=== PATIENT | female | born 2000 | race Two or more races ===

== ENCOUNTER 2025-04-30 08:56 | Day surgery (SDC) | payer OTHER, SELFPAY ==
--- OUTSIDE RECORDS SUMMARY | 2025-03-14 06:00 | XMS_ITS ---
Author Organization [employer] Address [address] [place] [address] Care Team Providers Care Straightedge Machine Operator Helper Name Role Phone LUISITO JAMESON Unavailable [phone] REASON FOR VISIT Annual HOME ECONOMIST Physical Encounters Encounter Location Date Provider Diagnosis [employer] [address] [facility] [address] [place] [address] 03/14/2025 LUISITO JAMESON Encounter for gynecological examination (general) (routine) without abnormal findings Z01.419 and Encounter for screening for infections with a predominantly sexual mode of transmission Z11.3 Assessments Encounter Date Diagnosis (ICD Code) Assessment Notes Treatment Notes Treatment Clinical Notes Section Notes 03/14/2025 Encounter for gynecological examination (general) (routine) without abnormal findings (ICD-10 - Z01.419) Discussed cervical cancer screening with cytology every 3 years as per ASCCP guidelines. Advised continued annual pelvic exams. Patient encouraged to increase her level of exercise. SBE technique encouraged/tau ght. Safe sexual practices and STI prevention discussed. 03/14/2025 Encounter for screening for infections with a predominantly sexual mode of transmission (ICD-10 - Z11.3) Plan Of Treatment Treatment Notes Assessment Notes Encounter for gynecological examination (general) (routine) without abnormal findings Discussed cervical cancer screening with cytology every 3 years as per ASCCP guidelines. Advised continued annual pelvic exams. Patient encouraged to increase her level of exercise. SBE technique encouraged/taught. Safe sexual practices and STI prevention discussed. Next Appt Details Follow Up: 1 Year, Reason: Y early Process Eng Exam Provider Name:LUISITO Bansal, 04/28/2025 01:00:00 PM, [address], [address], [place], [address], Progress Notes * LILLI NINAB:2000 ( 25 yo F)Acc No.[id number]:03/14/2025 PROGRESS NOTES Patient: GOLDIE SALDANA Provider: Myesha JAMESON MD :2000 A ge:24 Y S ex:Female Date:03/14/2025 Address:[address] [place], [place] [id number] Subjective: * Chief Complaints: * 1 . Annual HOME ECONOMIST Physical. 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 S he has been in state of good health since her last exam. She has the following concerns: S he has received the [employer] Covid-19 vaccine. She has known PCOS and was started on OCPs in 12/2023. R elationship status: *partnered for 5 years. She has not yet become sexually active and has no plans to become sexually active. Sexual partner(s): male. She does not wish to have STI testing, but agrees with CDC-recommended GC/CT screening. M enses: *mostly monthly, lasting about 7 days, except for the 2 months listed above. C ontraception: *abstinence, plans condoms should she become sexually active. Uses OCPs for cycle control. The patient has never had a pap smear. First pap smear today . T he patient does* exercise. She exercises x 3 days/week by walking. * ROS: A nnual Process Eng Exam ROS: Bowel habit changes d enies. B ladder symptoms d enies. V aginal discharge, unusual d enies. V aginal itch or odor d enies. w eight or appetite changes d enies. C hest pains, SOB d enies. d epression d enies.? B reast: Denies B reast lump. D enies N ipple discharge.? H ematology: Denies S wollen glands. S kin: Patient denies c hanging moles. P sychiatric: Denies A nxiety. * Medical History: Objective: * Vitals: * Examination: G eneral Examination: GENERAL APPEARANCE: i n no acute distress,well developed, well nourished,plate straightener present in room. HEAD: n ormocephalic, atraumatic. NECK/THYROID: n saida supple, full range of motion,thyroid normal. LYMPH NODES: n o axillary or supraclavicular adenopathy.? SKIN: n ormal,good turgor,no rashes,no suspicious lesions.? BREASTS: n ormal,no dimpling,no discharge,no drainage,no masses palpable bilaterally,nontender. ABDOMEN: s oft, non-tender, non distended without masses or hepatosplenomegay. BACK: n o costovertebral angle tenderness. FEMALE GENITOURINARY: V ulva without lesions or masses, vagina pink without abnormal discharge, lesions or masses, cervix appears normal and is not tender to palpation, uterus is normal size, mobile, nontender and anteverted, ovaries are not palpable. NEUROLOGIC: a lert and oriented,gait normal. PSYCH: a lert, oriented,cognitive function intact,cooperative with exam,good eye contact,mood/affect full range,speech clear. Assessment: * Assessment: 1. E ncounter for gynecological examination (general) (routine) without abnormal findings - Z01.419 (Primary) 2 . E ncounter for screening for infections with a predominantly sexual mode of transmission - Z11.3 Plan: * Treatment: * Follow Up: 1 Year (Reason: Yearly Process Eng Exam) * Images: Billing Information: * Visit Code: 80553 Preventive Care Est Pt. Age 18-39. 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 She has been in state of good health since her last exam. She has the following concerns: She has received the [employer] Covid-19 vaccine. She has known PCOS and was started on OCPs in 12/2023. Relationship status: *partnered for 5 years. She has not yet become sexually active and has no plans to become sexually active. Sexual partner(s): male. She does not wish to have STI testing, but agrees with CDC-recommended GC/CT screening. Menses: *mostly monthly, lasting about 7 days, except for the 2 months listed above. Contraception: *abstinence, plans condoms should she become sexually active. Uses OCPs for cycle control. The patient has never had a pap smear. First pap smear today . The patient does* exercise. She exercises x 3 days/week by walking. Examination Category Sub-Category Detail Notes Category Not es General Examination GENERAL APPEARANCE: in no ac [place] distress, well developed, well nourished, plate straightener present in room HEAD: normocephalic, atrau matic NECK/THYROID: neck supple, full ra nge of motion, thyroid normal ABDOMEN: soft, non-tender, no n distended without masses or hepatosplenomegay NEUROLOGIC: alert and oriented, gait normal SKIN: normal, good turgor, no rashes, no suspicious lesions BACK: no costovertebral an gle tenderness BREASTS: normal, no dimpling, no discharge, no drainage, no masses palpable bilaterally, nontender LYMPH NODES: no axillary or supra clavicular adenopathy PSYCH: alert, oriented, cog nitive function intact, cooperative with exam, good eye contact, mood/affect full range, speech clear FEMALE GENITOURINARY: Vulva without lesi ons or masses, vagina pink without abnormal discharge, lesions or masses, cervix appears normal and is not tender to palpation, uterus is normal size, mobile, nontender and anteverted, ovaries are not palpable
--- OUTSIDE RECORDS SUMMARY | 2025-04-10 18:45 | XMS_ITS | Patient Health Record ---
Author Organization [facility] Address [address] [address] Care Team Providers Care Public Relations Senior Associate Name Role Phone LUISITO JAMESON Unavailable [phone] Allergies No Known Allergies Reason For Referral No Information Medications Medication SIG (Take, Route, Frequency, Duration) Notes Start Date End Date Status Sprintec 28 0.25-35 MG-MCG 1 tablet Oral ly Once a day; Duration: 30 days 12/26/2023 Active Social History Tobacco Use: Social History Observation Description Date Details (start date - stop date) Never Smoker NA - NA Sexual History Question Answer Notes Had sex in the past 12 months (vaginal, oral, or anal)? No Have you ever had a Sexually transmitted disease ? No Tobacco use other than smoking: Question Answer Notes Are you an other tobacco user? No AUDIT-C (Standard) Question Answer Notes Did you have a drink contain ing alcohol in the past year? Yes How often did you have six o r more drinks on one occasion in the past year? Never (0 point) How many drinks did you have on a typical day when you were drinking in the past year? 1 or 2 drinks (0 point) How often did you have a dri nk containing alcohol in the past year? Monthly or less (1 point) Points 1 Interpretation Negative Tobacco Control (Standard) Question Answer Notes Tobacco use: Nonsmoker Problems Problem Type SNOMED Code ICD Code Onset Dates Problem Status W/U Status Risk Notes Problem Irregular menstruation (55014843) Irregular menstruation, unspecified (N92.6) Active confirmed Problem Abnormal uterine bleeding (49596787113600) Abnormal uterine and vaginal bleeding, unspecified (N93.9) Active confirmed Problem Polycystic ovary syndrome (disorder) (068334135) Polycystic ovarian syndrome (E28.2) Active confirmed Vital Signs Temperature 97.7 degrees Fahrenheit 04/29/2024 Blood pressure diastolic 80 mm Hg 04/29/2024 Height 57 in 04/29/2024 Blood pressure systolic 108 mm Hg 04/29/2024 Weight 140 lbs 04/29/2024 BMI 30.29 kg/m2 04/29/2024 Encounters Encounter Location Date Provider Diagnosis [place] [address] [address] [facility] [address] [place] [address] 04/29/2024 LUISITO JAMESON Encounter for surveillance of contraceptive pills Z30.41 [address] [place] [address] [address] [facility] [address] [place] [address] 01/21/2025 LUISITO JAMESON Encounter for surveillance of contraceptive pills Z30.41 [place] [address] [address] 03/19/2025 LUISITO JAMESON Encounter for surveillance of contraceptive pills Z30.41 Assessments Encounter Date Diagnosis (ICD Code) Assessment Notes Treatment Notes Treatment Clinical Notes Section Notes 04/29/2024 Encounter for surveillance of contraceptive pills (ICD-10 - Z30.41) No contraindications to estrogen-containing contraception. Reviewed symptoms of thromboembolic events using the ACHES acronym. Reviewed importance of safer sex and encouraged condom use. 01/21/2025 Encounter for surveillance of contraceptive pills (ICD-10 - Z30.41) 03/19/2025 Encounter for surveillance of contraceptive pills (ICD-10 - Z30.41) 04/29/2024 Other Plan Of Treatment Pending Test Test Name Order Date FSH 12/30/2019 LH 12/30/2019 TSH WITH REFLEX TO FT4 12/30/2019 PROLACTIN WITH REFLEX TO MONOMERIC 12/29 Next Appt Details Provider Name:LUISITO RIVERA Nimisha, 04/28/2025 01:00:00 PM, [address] [facility] [address], [place], [address], Insurance Providers Payer Name Payer Address Payer Phone Subscriber Number Group Number Insured Name Patient Relationship to Insured Coverage Start Date Coverage End Date [employer] [address] [place], [place] [phone] [id number] GOLDIE NINA Self - patient is the insured Medical (General) History Medical History History ICD Code Polycystic ovarian syndrome E28.2 Irregular menstruation, unspecified N92. 6 Abnormal uterine and vaginal bleeding, u nspecified N93.9 Surgical History Surgery Date(Month/Year) Eyes Cholecystectomy 2016 Hospitalization History Reason Date(Month/Year) See Surgical Hx
[2025-04-23 15:04] VITALS: BMI 30.3
--- NOTE | 2025-04-25 14:19 | HO.ANESPROP2 ---
Documented by User: Melissa Blake NP 04/25/25 14:19 HPI - Anesthesia Eval Consult details Narrative: 25yo F for RIGHT Lateral Rectus Eye Muscle Resection,RIGHT Medial Rectus Resection +THC [facility] Past Medical History Medical History Necrotizing enterocolitis PCOS (polycystic ovarian syndrome) Surgical History Surgical History Hx of abdominal surgery Hx of eye surgery Hx laparoscopic cholecystectomy Social History Social History Patient Tobacco Use Status: Never used Tobacco Use of substances other than those prescribed or required for medical reasons: Yes Substance Use Type: Marijuana Substance Use Type Other:: rarely Are you DNR?: No Advance Directives: No Advance Directives Information Provided: Yes : No Meds Allergies Allergy/AdvReac Type Severity Reaction Status Date / Time No Known Allergies Allergy Verified 04/23/25 10:13 Home Medications ?Medication ?Instructions ?Recorded ?Confirmed ?Last Taken ?Type acetaminophen 325 mg tablet 650 mg PO Q4H PRN Pain 04/23/25 04/23/25 Unknown History (Tylenol) ibuprofen 400 mg tablet 400 mg PO Q6H PRN Pain 04/23/25 04/23/25 Unknown History norgestimate 0.25 mg-ethinyl 1 tab PO DAILY 04/23/25 04/23/25 Unknown History estradiol 0.035 mg tablet Exam Height,Weight and Vital Signs: Height 4 ft 9.72 in Weight 65.2 kg Assessment and Plan Assessment Anesthesia Assessment: Chart Reviewed Documented by User: Timmy Evans MD 04/30/25 11:10 [facility] Past Medical History Medical History Necrotizing enterocolitis PCOS (polycystic ovarian syndrome) Family History Family history of problems with anesthesia: No Surgical History Surgical History Hx of abdominal surgery Hx of eye surgery Hx laparoscopic cholecystectomy History of Problems with Anesthesia: No Social History Social History Patient Tobacco Use Status: Never used Tobacco Use of substances other than those prescribed or required for medical reasons: Yes Substance Use Type: Marijuana Substance Use Type Other:: rarely Are you DNR?: No Advance Directives: No Advance Directives Information Provided: Yes : No Meds Allergies Allergy/AdvReac Type Severity Reaction Status Date / Time No Known Allergies Allergy Verified 04/23/25 10:13 Home Medications ?Medication ?Instructions ?Recorded ?Confirmed ?Last Taken ?Type acetaminophen 325 mg tablet 650 mg PO Q4H PRN Pain 04/23/25 04/23/25 Unknown History (Tylenol) ibuprofen 400 mg tablet 400 mg PO Q6H PRN Pain 04/23/25 04/23/25 Unknown History norgestimate 0.25 mg-ethinyl 1 tab PO DAILY 04/23/25 04/23/25 Unknown History estradiol 0.035 mg tablet Exam Exam Date and Time: 04/30/25 Airway Mallampati Class: I TM Dist: >3cm Neck ROM: Full Heart: rrr Lungs: ctab vesicular Assessment and Plan Assessment Anesthesia Assessment: Anesthesia Plan Discussed Final Anesthetic Review Family History of Problems with Anesthesia: No History of Problems with Anesthesia: No NPO: Yes ASA Class: II Final Preanesthetic Review: No Changes in Pt Med Stat, Meds/Allgs Chart Reviewed, Consent Obtained/Reviewed and Anes Risks/Benef Reviewed Patient Risk: Low Procedure Risk: Low Anesthetic Plan Anesthetic Plan: GA Disposition: Standard PACU
[2025-04-30] VITALS (11 sets, daily range): BP systolic 105–122; BP diastolic 62–77; PULSE 87–127; RESP 14–20; TEMP 36.3–36.4; O2SAT 96–99; BMI 30.1
[2025-04-30 09:29] LABS: UPreg QC Valid YES
[2025-04-30] MEDS: Lactated Ringers 1,000 ML 100 ML IVCONT (09:38)
[2025-04-30] MEDS: Tetracaine HCl/PF 0.5% Oph Sol 4 ML DROPS 1 DROP EYE-RIGHT ×2 (12:20→13:40)
--- NOTE | 2025-04-30 13:28 | HO.OPHTHAL ---
Ophthalmology Operative Note Date of Service: 04/30/25 Narrative: Diagnosis exotropia. Postoperative diagnosis same. Procedures 1. Recession of right lateral rectus 8 mm 2. Resection of right medial rectus 5.[address] Rodney. Anesthesia general. Complications none. The patient was brought the operating room placed under general anesthesia. The right eye was prepped and draped in the usual sterile ophthalmic fashion. A lid speculum was placed in the right eye and that incision with endo bare sclera in the inferotemporal fornix. The lateral rectus was hooked and secured with a double-armed Vicryl suture. It was disinserted from the globe and reattached to a position 8 mm behind the original insertion. Conjunctiva was closed with interrupted Vicryl sutures. An incision was then made down to bare sclera in the inferonasal fornix. The medial rectus was hooked and dissected free of its overlying fascial attachments. Was grasped with the insertion with the muscle clamp and a 5.5 mm resection was marked off with cautery. The resection point was secured with a double-arm Vicryl suture and the distal muscle resected. The resection point was then drawn forward to the original insertion. Conjunctiva was closed with interrupted Vicryl sutures. The patient's then awoken from general anesthesia and discharged to postoperative recovery in good condition.
== END 2025-04-30 14:17 | disposition home or self-care (01) ==
PROVIDERS: Nurse Practitioner; PCP Nurse Practitioner Family; Visit Provider Ophthalmology
PROC: (CPT 67312; principal; 2025-04-30 12:00)
DX: H50.112 Monocular exotropia, left eye (principal); E28.2 Polycystic ovarian syndrome; E66.811 Obesity, class 1; Z98.890 Other specified postprocedural states; Z90.49 Acquired absence of other specified parts of digestive tract; Z79.899 Other long term (current) drug therapy; Z79.1 Long term (current) use of non-steroidal anti-inflammatories (NSAID)
CPT/HCPCS: 67312; 81025; J0131; J0461; J1100; J1630; J2003; J2250; J2371; J2405; J2704; J3010